=== PATIENT | female | born 2000 | race Caucasian/White ===

== ENCOUNTER 2018-02-09 03:04 | Emergency (ER) | payer OTHER ==
[2018-02-09 03:11] VITALS: TEMP 36.5; O2SAT 99
[2018-02-09 03:56] LABS: BLOOD UREA NITROGEN 10 mg/dl (7-18); CALCIUM 8.4 mg/dl (8.5-10.1); CARBON DIOXIDE 24 mmol/L (21-32); CREATININE 0.75 mg/dl (0.60-1.20); GLUCOSE 100 mg/dl (70-99); POTASSIUM 3.4 mmol/L (3.5-5.1); SODIUM 139 mmol/L (136-145)
[2018-02-09 05:22] VITALS: BP 123/72; PULSE 103; O2SAT 97
--- NOTE | 2018-02-09 06:33 | EMERGENCY ROOM VISIT NOTE ---
History Report prepared by Nenaibmary: Mukesh Gallego Under the Supervision of: Dr. Sun Irizarry D.O. First contact with patient: 03:09 Chief Complaint: ALCOHOL OVERDOSE Stated Complaint: UNCONSCIOUS ALCOHOL OVERDOSE Nursing Triage Summary: pt brought to main ED by ALS services. per ALS: pt was at a [employer] formal with a friend, drinking vodka, went to a different friend's apartment, appeared intoxicated, went to the bathroom and passed out, male friend called 911. per ALS, pt passed out at [address] [place] [address] [address] per ALS, pt vomited once before their arrival, pt only responsive to deep pain stimulation. per ALS police were on scene. upon arrival, pt is obtunded, responds to deep pain stimulation, pt breathing regularly and independently, skin cool to the touch. no vomiting or incontinence noted at this time. 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 Per EMS, the patient was at a [employer] where she was drinking Vodka. The patient left the democrat and went to a friend's house. They report the patient went into bathroom and then passed out. A friend contacted emergency services. EMS reports the patient passed out prior to EMS arrival. Per EMS, the patient only responded to deep tactile stimulation. HPI is limited secondary to intoxication. Source of History: EMS Onset: SMUTTER Position: other (general ) Quality: other (alcohol intoxication) Timing: other (persistent) Associated Symptoms: + vomiting Review of Systems ROS is limited secondary to intoxication. Past Medical & Surgical Medical Problems: (1) No Known Active Medical Problems Family History No pertinent family history Social History Smoking Status: Unknown if Ever Smoked Alcohol Use: heavy Marital Status: single Housing Status: lives with roommate Occupation Status: [employer] student Current/Historical Medications Unable to Obtain Active Prescriptions or Reported Meds Physical Exam Vital Signs Date Time Temp Pulse Resp B/P (MAP) Pulse Ox O2 Delivery O2 Flow Rate FiO2 02/09/18 05:22 103 16 123/72 97 Room Air 02/09/18 05:04 88 16 106/56 94 Room Air 02/09/18 04:21 103 20 127/77 99 Room Air 02/09/18 03:12 108 02/09/18 03:11 36.5 119 18 141/75 99 Room Air 02/09/18 03:11 99 Room Air Physical Exam General: Completely unresponsive. Appears to have chills on exam. Smells of ETOH. HEENT: Head - normocephalic and atraumatic Pupils are 2 mm, round, and non- reactive to light. Extraocular eye muscles are intact, and sclera are anicteric. Nose - moist nasal mucosa without discharge. Mouth - moist buccal mucosa. Oropharynx is nonerythematous and there is no tonsillar exudate or edema noted. Neck: Supple; no JVD, nuchal rigidity, cervical lymphadenopathy. Heart: Tachycardic rate and regular rhythm. There is a normal S1 and S2 with no murmurs, clicks, or gallops appreciated. Lungs: Clear to auscultation bilaterally with no wheezes, rales, or rhonchi. Abdomen: Soft, completely nontender, nondistended, with good bowel sounds. There are no palpable pulsatile masses or hepatosplenomegaly. There is no guarding, rigidity, or rebound noted. Extremities: No evidence of cyanosis, clubbing, or edema. There are easily palpable peripheral pulses. Skin: warm and dry with good turgor and no rashes. Medical Decision & Procedures Laboratory Results 02/09/18 03:11 Test 02/09/18 03:11 02/09/18 04:15 Anion Gap 4.0 mmol/L (3-11) Estimated GFR () 133.9 Estimated GFR (Non- 115.6 BUN/Creatinine Ratio 14.0 (10-20) Calcium Level 8.4 mg/dl (8.5-10.1) Ethyl Alcohol mg/dL 151.0 mg/dl (0-3) Urine Test NEG (NEG) Urine Opiates Screen NEG (NEG) Urine Methadone, Qualitative NEG (NEG) Urine Barbiturates NEG (NEG) Urine Phencyclidine (PCP) Level NEG (NEG) Ur Amphetamine/Methamphetamine NEG (NEG) MDMA (Ecstasy) Screen NEG (NEG) Urine Benzodiazepines Screen NEG (NEG) Urine Cocaine Metabolite NEG (NEG) Urine Marijuana (THC) NEG (NEG) Laboratory results per my review. ED Course 0306: Past medical records reviewed. The patient was evaluated in room B11A. A complete history and physical exam was performed. The patient was placed in the prone position to avoid aspiration. They were observed on the cardiac care nurse and pulse oximeter. Labs were drawn as above 0430: I reassessed the patient at this time. She woke up with her urinary catheter. 0517: I reassessed the patient at this time. The patient is not waking up. The nurses will attempt to wake her, if they are unsuccessful I will CT the patient' s head. 0520: The nurse informed me the patient is awake at this time. 0522: I reassessed the patient at this time. She has no memory of the events from last night. She states that she remembers being at a democrat and being at a friend's house. I discussed the results and treatment plan with the patient. I answered all pertaining questions that she had. She expressed understanding and verbalized agreement. The patient will be discharged home. Medical Decision The patient is a 17 year old female who presents to the ED with alcohol intoxication. Differential diagnosis includes dehydration, alcohol overdose, drug intoxication, head injury, and hypoglycemia. Lab results showed: Glucose 100. Normal renal function Alcohol 151. Tox screen negative. The patient was brought to the emergency department after consuming too much alcohol. There were no obvious signs of trauma or complaints of pain. They were observed closely throughout the night and remained stable while here in the ER. The patient was allowed time to sober up prior to discharge. I had a conversation with the patient about the hazards of such excessive alcohol use. The patient seemed excessively obtunded for a APOLLO of 150. A catheterized urine specimen was obtained to do a urine tox screen. This was negative. Nursing staff were able to arouse the patient until she was fully awake and alert and able to communicate with me. I spent some time with the patient and question whether or not there had been any drug use or any trauma. She denied this. Medication Reconcilliation Current Medication List: was personally reviewed by me Blood Pressure Screening Patient's blood pressure: Normal blood pressure Impression Primary Impression: Alcohol overdose Scribe Attestation The scribe's documentation has been prepared under my direction and personally reviewed by me in its entirety. I confirm that the note above accurately reflects all work, treatment, procedures, and medical decision making performed by me. Departure Information Dispostion Home / Self-Care Prescriptions Unable to Obtain Active Prescriptions or Reported Meds Referrals No Doctor, Assigned (PCP) Forms HOME CARE DOCUMENTATION FORM, IMPORTANT VISIT INFORMATION Patient Instructions My [facility]: [employer] Students and Alcohol Related Visits, ED Overdose Alcohol Additional Instructions Avoid such excessive alcohol use in the future. Tylenol 650 mg every 6 hours for headache. Drink plenty of fluids and take a bland diet today. Return to the emergency department for worsening symptoms or any medical concerns. Problem Qualifiers Primary Impression: Alcohol overdose Encounter type: initial encounter Injury intent: accidental or unintentional Qualified Codes: T51.91XA - Toxic effect of unspecified alcohol , accidental (unintentional), initial encounter
== END 2018-02-09 05:40 | disposition home or self-care (01) ==
LOC: EDBD 03:04 → C.EDB 03:06
DX: T51.91XA Toxic effect of unspecified alcohol, accidental (unintentional), initial encounter (principal)